=== PATIENT | female | born 1995 | race Caucasian/White ===

== ENCOUNTER 2017-07-04 11:04 | Emergency (ER) | payer OTHER ==
[~2017-07-04] VITALS: Wt 51.7 kg
[~2017-07-04 11:04] MED LIST: FLEXERIL5 MG PO; MEDROL DOSEPAK4 MG PO; MOTRIN800 MG PO; QUETIAPINE FUM100 M3 PO; VOLTAREN50 M1 PO; ZITHROMAX Z PA250 MG PO
[2017-07-04 11:12] VITALS: BP 110/65
[2017-07-04 11:35] LABS: BILIRUBIN 1+ (NEGATIVE); BLOOD NEGATIVE (NEGATIVE); CLARITY CLOUDY (CLEAR); COLOR YELLOW (YELLOW); GLUCOSE NEGATIVE (NEGATIVE); KETONE NEGATIVE (NEGATIVE); LEUKO ESTERASE 3+ (NEGATIVE); NITRITE NEGATIVE (NEGATIVE); UROBILINOGEN 0.2 E.U./dl (0.2-1.0)
[2017-07-04] MEDS ORDERED: ZOFRAN4 MG PO (11:35)
[2017-07-04 11:43] LABS: EPITHELIAL CELLS 41-50; MUCOUS 2+; WBC 16-20 wbc/hpf (0-5)
[2017-07-04] MEDS ORDERED: PYRIDIUM200 M1 PO (11:47)
[2017-07-04] MEDS ORDERED: Bactrim DS PO (11:47)
== END 2017-07-04 11:50 | disposition home or self-care (01) ==
LOC: ED 11:04
PROVIDERS: Nurse Practitioner Family
DX: N39.0 Urinary tract infection, site not specified (principal); Z90.89 Acquired absence of other organs; Z98.890 Other specified postprocedural states; Z88.5 Allergy status to narcotic agent

== ENCOUNTER 2017-08-02 16:07 | Emergency (ER) | payer OTHER ==
[~2017-08-02] VITALS: Ht 170.1 cm; Wt 52.6 kg
[~2017-08-02 16:07] MED LIST changes: +Bactrim DS PO; +PYRIDIUM200 M1 PO; +ZOFRAN4 MG PO
[2017-08-02 16:14] VITALS: BP 111/55
[2017-08-02 16:39] LABS: BASO # 0.1 10*3/uL (0.0-0.1); BASO % 0.6 % (0.0-1.0); EOS # 0.1 10*3/uL (0.0-0.4); HEMOGLOBIN 12.8 g/dl (12.0-16.0); LYMPH # 2.2 10*3/uL (1.3-4.4); LYMPH % 25.5 % (27.0-41.0); MEAN CELL VOLUME 81.8 fl (81.0-99.0); MEAN CORPUSCULAR HGB 26.8 pg (27.0-31.0); MEAN CORPUSCULAR HGB CONC 32.8 g/dl (33.0-37.0); MEAN PLATELET VOLUME 11.1 fl (9.6-12.3); MONO # 0.5 10*3/uL (0.1-1.0); MONO % 5.2 % (3.0-9.0); NEUT # 5.8 10*3/uL (2.3-7.9); NEUT % 67.5 % (47.0-73.0); PLATELET COUNT AUTOMATED 243 10*3/uL (130-400); RED BLOOD COUNT 4.77 10*6/uL (4.10-5.10); RED CELL DISTRI WIDTH 14.3 % (0-14.5); WHITE BLOOD COUNT 8.6 10*3/uL (4.8-10.8)
[2017-08-02 16:56] LABS: ALBUMIN 3.7 gm/dl (3.1-4.5); ALKALINE PHOSPHATASE 88 U/L (45-117); BUN 9 mg/dl (7-24); CHLORIDE 107 mmol/L (98-107); CREATININE 0.95 mg/dL (0.55-1.02); POTASSIUM 4.2 mmol/L (3.5-5.1); SGOT/AST 6 IU/L (3-35); SGPT/ALT 16 U/L (12-78); SODIUM 141 mmol/L (136-145); TOTAL PROTEIN 7.9 gm/dL (6.4-8.2)
== END 2017-08-02 22:49 | disposition home or self-care (01) ==
LOC: ED 16:07 → EDHOLD 17:38 → ED 22:49
PROVIDERS: Nurse Practitioner Family
DX: A08.4 Viral intestinal infection, unspecified (principal); Z98.890 Other specified postprocedural states; Z90.89 Acquired absence of other organs; Z88.5 Allergy status to narcotic agent

== ENCOUNTER 2017-08-30 21:39 | Emergency (ER) | payer OTHER ==
[~2017-08-30] VITALS: Ht 167.6 cm; Wt 59.0 kg
[2017-08-30 21:43] VITALS: BP 142/65
[2017-08-30] MEDS ORDERED: ZYRTEC10 M3 PO (22:23)
== END 2017-08-30 22:24 | disposition home or self-care (01) ==
LOC: ED 21:39
DX: J02.8 Acute pharyngitis due to other specified organisms (principal); B97.89 Other viral agents as the cause of diseases classified elsewhere; Z88.8 Allergy status to other drugs, medicaments and biological substances

== ENCOUNTER 2017-09-02 12:48 | Emergency (ER) | payer OTHER ==
[~2017-09-02] VITALS: Ht 170.1 cm; Wt 52.2 kg
[~2017-09-02 12:48] MED LIST changes: +ZYRTEC10 M3 PO
[2017-09-02 13:11] VITALS: BP 109/76
[2017-09-02] MEDS ORDERED: AMOXICILLIN500 M2 PO (13:19)
== END 2017-09-02 13:50 | disposition home or self-care (01) ==
LOC: ED 12:48
DX: J02.9 Acute pharyngitis, unspecified (principal); H92.01 Otalgia, right ear; Z98.890 Other specified postprocedural states; Z79.899 Other long term (current) drug therapy; Z88.5 Allergy status to narcotic agent